=== PATIENT | female | born 1990 | race Two or more races ===

== ENCOUNTER 2017-05-17 00:02 | Emergency (ER) | payer OTHER ==
[~2017-05-17] VITALS: Ht 154.9 cm; Wt 56.7 kg
[2017-05-17 00:54] LABS: Basophils # (auto) 0 uL; Basophils % (auto) 0.5 % (0.0-2.0); Eosinophils # (auto) 0.3 uL; Eosinophils % (auto) 4.3 % (0.0-7.0); Hematocrit 39.2 % (36.0-46.0); Hemoglobin 13.4 g/dL (12.2-16.2); Lymphocytes # (auto) 2.2 uL; Lymphocytes % (auto) 31.9 % (10.0-50.0); Mean Corpuscular Hemoglobin 30.4 pg (28.0-32.0); Mean Corpuscular Hgb Conc. 34.2 g/dL (32.0-36.0); Mean Corpuscular Volume 88.8 fL (80.0-100.0); Monocytes # (auto) 0.6 uL; Neutrophils # (auto) 3.8 uL; Neutrophils % (auto) 54.3 % (37.0-80.0); Nucleated Red Blood Cells % 0.1 %; Platelet Count (auto) 237 10^3/uL (140-450); Red Blood Cells 4.42 10^6/uL (4.0-5.20); Red Cell Distribution Width 13.1 % (11.8-14.3)
[2017-05-17 01:10] LABS: Anion Gap 7 (5-15); Aspartate Aminotransferase 19 U/L (15-37); BUN/Creatinine Ratio 27.3; Blood Urea Nitrogen 15 mg/dL (7-18); Calcium 8.5 mg/dL (8.5-10.1); Carbon Dioxide 25 mmol/L (21-32); Chloride 105 mmol/L (98-107); GFR African American 171 mL/min; GFR Non-African American 141 mL/min; Glucose 97 mg/dL (74-106); Potassium 3.4 mmol/L (3.5-5.1); Sodium 137 mmol/L (136-145)
[2017-05-17 01:17] LABS: Beta HCG, Quantitative < 1 mlU/mL (1-3)
[2017-05-17 01:23] LABS: Alanine Aminotransferase 19 U/L (13-56); Alkaline Phosphatase 90 U/L (45-117); Bilirubin, Total 0.5 mg/dL (0.2-1.0); Total Protein 7.6 g/dL (6.4-8.2)
[2017-05-17 01:59] VITALS: BP 119/88
[2017-05-17 02:51] LABS: Thyroid Stimulating Hormone 4.69 uIU/mL (0.358-3.74)
== END 2017-05-17 04:24 | disposition home or self-care (01) ==
LOC: ER 00:02
DX: R07.89 Other chest pain (principal); R94.6 Abnormal results of thyroid function studies; Z91.040 Latex allergy status
CPT/HCPCS: 36415; 71046; 80053; 83735; 84443; 84484; 84702; 85025; 93005